=== PATIENT | male | born 1985 | race Caucasian/White ===

== ENCOUNTER → 2018-01-06 | Outpatient (CLI) | payer OTHER | END | disposition home or self-care (01) | LOC: LABWHC1 16:12 | PROVIDERS: ATTEND Family Medicine | DX: R07.9 Chest pain, unspecified (principal) | CPT/HCPCS: 36415; 84484; 85379 ==

== ENCOUNTER → 2020-04-26 | Outpatient (CLI) | payer OTHER ==
[2020-04-26 13:40] LABS: Basophils % (A) 0 %; Eosinophils # (A) 0.1 k/uL (0-0.7); Eosinophils % (A) 2 %; HCT 48.8 % (39.0-53.0); HGB 15.7 gm/dL (13.0-17.5); Lymphocytes # (A) 1.8 k/uL (1.0-4.8); Lymphocytes % (A) 25 %; MCHC 32.2 g/dL (31.0-37.0); MCV 83.9 fL (80.0-100.0); Mean Platelet Volume 7.7; Monocytes # (A) 0.4 k/uL (0-1.0); Monocytes % (A) 6 %; Neutrophils # (A) 4.7 k/uL (1.3-7.7); Neutrophils % (A) 65 %; Platelet Count 189 k/uL (150-450); RBC 5.81 m/uL (4.30-5.90); WBC 7.2 k/uL (3.8-10.6)
[2020-04-26 19:03] LABS: Cyclic Citrull Pep IgG Unit 0.8 U/mL; Cyclic Citrullinated Pep IgG NEGATIVE (NEGATIVE)
[2020-04-26 19:48] LABS: Erythrocyte Sedimentation Rate 7 mm/Hr (0-15)
[2020-04-26 20:26] LABS: Protein, Total 6.6 g/dL (6.2-8.2)
[2020-04-26 22:00] LABS: % Iron Saturation 21.17 (15.00-50.00); African American GFR (CKD) 76.5 (60.0-200.0); Albumin 4.6 g/dL (3.80-4.90); Albumin/Globulin Ratio 2.19 (1.60-3.17); BUN/Creat Ratio 8.57 Ratio (12.00-20.00); C Reactive Protein 0.7 mg/dL (0.0-0.8); Calcium 9.5 mg/dL (8.7-10.3); Globulin 2.1 g/dL (1.6-3.3); Potassium 4.3 mmol/L (3.5-5.5); Total Bilirubin 0.9 mg/dL (0.3-1.2); Total Protein 6.7 g/dL (6.2-8.2); Uric Acid 8.2 mg/dL (3.7-8.7)
[2020-04-26 22:26] LABS: Chol/HDL Ratio 6.31
== END | disposition home or self-care (01) ==
LOC: LABWHC1 12:15
PROVIDERS: ATTEND Family Medicine
DX: M13.0 Polyarthritis, unspecified (principal); L21.9 Seborrheic dermatitis, unspecified; C62.11 Malignant neoplasm of descended right testis; E29.1 Testicular hypofunction; F41.1 Generalized anxiety disorder; Z13.228 Encounter for screening for other metabolic disorders
CPT/HCPCS: 36415; 80053; 80061; 82306; 82607; 83540; 83550; 83615; 84165; 84402; 84403; 84443; 84550; 85025; 85652; 86038; 86039; 86140; 86200; 86334; 86618

== ENCOUNTER 2020-07-25 10:21 | Day surgery (SDC) | payer OTHER ==
[2020-07-23 13:17] VITALS: BMI 31.9
[~2020-07-25 10:21] MED LIST: LACTATED RINGERS 1,000 ML IV SCH; LIDOCAINE 1% (10MG/ML) FOR IV START INTRADERMA PRN
[2020-07-25 10:44] VITALS: RESP 16; TEMP 96
[2020-07-25] MEDS ORDERED: PROPOFOL 10 MG/ML 20 ML VIAL IV ONE (11:33)
[2020-07-25] MEDS ORDERED: LIDOCAINE 1% INJ 10MG/ML (20 ML MDV) ONE (11:33)
--- NOTE | 2020-07-25 11:50 | P.PCN ---
Date of Procedure: 07/25/20 Procedure(s) Performed: BRIEF HISTORY: Patient is a 34-year-old pleasant white male scheduled for an elective colonoscopy as a part of evaluation of intermittent rectal bleeding for the last few months duration. PROCEDURE PERFORMED: Colonoscopy. PREOPERATIVE DIAGNOSIS: Intermittent rectal bleeding. IV sedation per Anesthesia. PROCEDURE: After informed consent was obtained, the patient, was brought into the endoscopy unit. IV sedation was administered by Anesthesia under continuous monitoring. Digital rectal examination was normal. Initially the Olympus CF-160 flexible video colonoscope was then inserted in the rectum, gradually advanced into the cecum without any difficulty. Careful examination was performed as the scope was gradually being withdrawn. Ileocecal valve and the appendiceal orifice were visualized and appeared normal. Prep was excellent. Mucosa of the cecum, ascending colon, transverse colon, descending colon, sigmoid colon, and rectum appeared normal. Retroflexion was performed in the rectum and small internal hemorrhoidswere seen. The patient tolerated the procedure well. IMPRESSION: Normal-appearing colon from rectum to cecum with no evidence of colorectal neoplasia Small internal hemorrhoids. RECOMMENDATIONS: Findings of this examination were discussed with the patient as well as his family.. He was advised to be a high-fiber diet and take fiber supplements a regular basis.
[2020-07-25 12:28] VITALS: BP 135/88; PULSE 81
== END 2020-07-25 12:31 | disposition home or self-care (01) ==
LOC: ORWHC2ENDO 10:21
PROVIDERS: ATTEND Internal Medicine Gastroenterology
DX: K64.8 Other hemorrhoids (principal); E80.4 Gilbert syndrome; Z88.8 Allergy status to other drugs, medicaments and biological substances; Z85.47 Personal history of malignant neoplasm of testis; Z90.5 Acquired absence of kidney
CPT/HCPCS: 45378; J2001; J2704

== ENCOUNTER → 2022-06-03 | Outpatient (CLI) | payer OTHER ==
--- NOTE | 2022-06-03 16:07 | P.SLEEP ---
History of Present Illness DATE: 06/03/2022 CONSULTATION/NEW PATIENT EVALUATION HISTORY OF PRESENT ILLNESS/SLEEP-WAKE EVALUATION: 36year old lady had been e valuated in the sleep center for possible obstructive sleep apnea hypopnea syndrome. 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 FALLING ASLEEP: Sometimes patient has problems with falling asleep, no TV in bedroom. DURING SLEEP: Patient sleeps in different positions with snoring, restless leg symptoms and dry mouth. No history of hypnogogical hallucinations, sleep paralysis, or cataplexy. DURING THE DAY/WAKE STATE: Patient feels sleepy during the day. [place] sleepiness scale is 7. Patient takes 1-3 naps at any time. PAST MEDICAL HISTORY: Anxiety. PAST SURGICAL HISTORY: Left kidney have been removed for donation, right testicle CA treated surgically, hydroxylated removed. MEDICATIONS: Paroxetine. SOCIAL HISTORY: Negative for smoking or using alcohol . FAMILY HISTORY: Hypertension, heart problems, asthma, headaches, cancer, mental illness, diabetes, restless legs. REVIEW OF SYSTEMS: Snoring, jerking movements while falling asleep. No fevers. No double vision. No recent chest pain. No shortness of breath. No abdominal pain. No bleeding episodes. No blood in urine. No seizure episodes. PHYSICAL EXAMINATION: GENERAL: A pleasant patient without any distress. VITAL SIGNS: BP 124/82, HR 72, RR 16, weight 198 pounds, height 5 foot 8 inches, body mass index 38.1. HEENT: PERRLA, EOMI. Evaluation of oropharynx showed tongue protrudes midline, low position of soft palate Mallampati 3. NECK: Supple. No JVD. Thyroid is not palpable. 17.5 inches in circumference. LUNGS: Clear to percussion and to auscultation. Good air exchange. No wheezing or rhonchi. HEART: S1, S2 regular. No murmurs, gallops or rubs. ABDOMEN: Soft and nontender. Bowel sounds are present. No organomegaly appreciated. EXTREMITIES: No clubbing or cyanosis. PUBLIC INFORMATION DIRECTOR: Awake, alert, and oriented x3. Cranial nerves 2 to 7 intact. There is no fasciculation or atrophy noted. No focal deficits observed. ASSESSMENT: 1. Snoring, small oropharyngeal air space Mallampati 3, wide neck 17.5 inches in circumference, sleepiness. Possible obstructive sleep apnea hypopnea syndrome. 2. Obesity body mass index 38.1. 3 anxiety. 4. History of right testicle CA treated by orchiectomy. 5 status post the left kidney removed for donation. 6. Status post surgical treatment for hydrocele. 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 PLAN: 1. Polysomnography for evaluation of patient's breathing during sleep. 2. CPAP/BiPAP titration if sleep study confirms obstructive sleep apnea- hypopnea syndrome. 3. Preferable position during sleep on the side. 4. No driving if patient feels any sleepiness. Patient is aware of civil and criminal liability for unsafe driving. 5. Sleep hygiene with regular sleep time for at least 7.5-8 hours. 6. Watching and losing weight. Thank you very much for referring this patient for consultation. Sincerely, Luis Oates MD, PhD, FAASM. Diplomat of [employer], Sleep Medicine Board by [employer] [facility] Past Medical History Past Medical History: Cancer, Renal Disease, Skin Disorder Additional Past Medical History / Comment(s): Hx testicular cancer 2015; Rt testicle removed, had chemo. Hx rectal bleeding; Family hx colon cancer. Hx Gilbert Syndrome, Lt Nephrectomy. Dermatitis in scalp and [place] area. History of Any Multi-Drug Resistant Organisms: None Reported Past Surgical History: Orthopedic Surgery Additional Past Surgical History / Comment(s): nephrectomy - left kidney, Rt testicle removal. hydrocele surgery. ORIF Lt Elbow Past Anesthesia/Blood Transfusion Reactions: No Reported Reaction Smoking Status: Never smoker - Past Family History Mother Family Medical History: No Reported History Additional Family Medical History / Comment(s): (maternal grandmother had colon cancer) Medications and Allergies Home Medications Medication Instructions Recorded Confirmed Type PARoxetine HCL [Paroxetine HCl] 20 mg PO DAILY 02/23/15 07/25/20 History Cholecalciferol [Vitamin D3 (25 2,000 unit PO DAILY 07/23/20 07/25/20 History Mcg = 1000 Iu)] Cyanocobalamin [Vitamin B-12] 500 mcg PO DAILY 07/23/20 07/25/20 History Pedi Multivit No.25/Folic Acid 1 tab PO DAILY 07/23/20 07/25/20 History [Flintstones Multivit Chew Tab] Allergies Allergy/AdvReac Type Severity Reaction Status Date / Time promethazine HCl Allergy Confusion/V Verified 07/23/20 13:00 [From Phenergan] IOLENT Sleep Note - Sleep Note Sleep Note: Temperature: Pulse Rate: Respiratory Rate: Blood Pressure: SpO2: Height: Weight: BMI: Neck Circumference:
--- NOTE | 2022-06-03 16:34 | P.PN ---
Subjective DATE: 06/03/2022 FOLLOW UP VISIT. Patient with obstructive sleep apnea hypopnea syndrome return to sleep center for follow-up visit. Information from previous visit have been reviewed. Patient is using PAP equipment every night for the whole night, getting PAP supplies in time. The patient does not have significant problems with the mask, PAP unit and humidification. [place] sleepiness scale is 3, which is normal. I checked information from PAP unit. PAP unit pressure 12 cm H2O. Usage is 100 % for more then 4 hours, average 7.1 hours per night. Leak is increased to 42 l/m. Patient using nasal pillow mask with chinstrap. Apnea Hypopnea Index is 5.1, which is normal. MEDICATIONS:1. Synthroid 137 g once a day 2. Metoprolol 100 mg 3 times a day 3. Zetia 10 mg once a day 4. Xarelto 20 mg once a day 5. Lasix 40 mg once a day During physical exam: GENERAL: A pleasant patient without any distress. VITAL SIGNS: BP 98/61, HR 72, RR 16 , weight 250, height 5 foot 6 inches, body mass index 40.3, patient lost 17 pounds since previous visit, temperature 97.4, oxygen saturation at room air 96 % . HEENT: PERRLA, EOMI.low position of soft palate, Mallapati 4 . NECK: Supple. No JVD. LUNGS: Clear to percussion and to auscultation. Good air exchange. No wheezing or rhonchi. HEART: S1, S2 regular. ABDOMEN: Soft and nontender. Obese EXTREMITIES: No clubbing or cyanosis. CASH REGISTER MECHANIC: Awake, alert, and oriented x3. No focal deficit. Impressions: 1. Obstructive sleep apnea-hypopnea syndrome. Patient demonstrated great compliance with treatment, benefiting from treatment. 2. Obesity, patient lost 17 pounds since previous visit. 3. Status post COVID- and 2020. 4. Atrial fibrillation. 5. Hypothyroidism. 6. Miastenia gravis. 7. Hyperlipidemia. 8. History of biliary cirrhosis. Plan: 1. Continue using PAP equipment every night for the whole night. 2. To change air filter at least 1-2 times per month. 3. PAP unit should stay lower then position of the head. 4. Advised patient to remove all remaining water from humidifier canister daily and make it dry after each usage. Refill canister with fresh distilled water before each usage. 5. Sleep hygiene with regular time in bed for at least 8 hours. 6. Precautions related to driving. No driving if feel any sleepiness. 7. I will maintain prescription for PAP supplies including mask, tube, filters. 8. Follow up visit in 6 months or earlier if patient has any problems. 9. Watching and continue losing weight. Thank you very much for allowing me to participate in the management of your patient. Luis Oates MD, PhD, FAASM. Diplomat of [place] [employer], Sleep Medicine Board by [place] [employer] Central Office Install[facility] [place]
== END ==
LOC: SLEEP 15:28
PROVIDERS: ATTEND Internal Medicine
DX: G47.30 Sleep apnea, unspecified (principal); Z98.890 Other specified postprocedural states; Z90.79 Acquired absence of other genital organ(s); Z88.8 Allergy status to other drugs, medicaments and biological substances
CPT/HCPCS: 99211

== ENCOUNTER 2023-03-09 21:43 | Emergency (ER) | payer OTHER ==
[2023-03-09 21:53] VITALS: RESP 18
[2023-03-09] MEDS ORDERED: ONDANSETRON ODT 4 MG TAB PO STA (22:06)
--- NOTE | 2023-03-09 22:38 | XR ---
EXAM: XR Chest, 2 Views CLINICAL HISTORY: ITS.REASON XR Reason: cough TECHNIQUE: Frontal and lateral views of the chest. COMPARISON: No relevant prior studies available. FINDINGS: Lungs: Unremarkable. No consolidation. Pleural space: Unremarkable. No pneumothorax. Heart: Unremarkable. No cardiomegaly. Mediastinum: Unremarkable. Bones/joints: Unremarkable. IMPRESSION: Normal chest x-rays.
[2023-03-09] MEDS ORDERED: methylPREDNISolone 4 MG TAB PO STA (23:07)
[2023-03-09] MEDS ORDERED: methylPREDNISolone 4 MG TAB PO ONE (23:15)
--- NOTE | 2023-03-09 23:15 | ED ---
General Adult HPI - General Chief complaint: Upper Respiratory Infection Stated complaint: Body Aches, Cough, N/V Time Seen by Provider: 03/09/23 21:54 Source: patient Mode of arrival: ambulatory Limitations: no limitations - History of Present Illness Initial comments: Patient is a 37-year-old male who presents to the emergency department for upper respiratory symptoms. Patient reports productive cough, body aches, chills, nausea since yesterday. He did have one episode of vomiting yesterday while coughing. He denies fever. Denies shortness of breath, chest pain. Denies history of asthma and COPD. - Related Data Home Medications Medication Instructions Recorded Confirmed PARoxetine HCL [Paroxetine HCl] 20 mg PO DAILY 02/23/15 07/25/20 Cholecalciferol [Vitamin D3 (25 2,000 unit PO DAILY 07/23/20 07/25/20 Mcg = 1000 Iu)] Cyanocobalamin [Vitamin B-12] 500 mcg PO DAILY 07/23/20 07/25/20 Pedi Multivit No.25/Folic Acid 1 tab PO DAILY 07/23/20 07/25/20 [Flintstones Multivit Chew Tab] Previous Rx's Medication Instructions Recorded Ondansetron Odt [Zofran Odt] 4 mg PO Q8HR PRN #10 tab 03/09/23 methylPREDNISolone Dose Pack 4 mg PO DIRECTED #1 packet 03/09/23 [Medrol Dose Pack] Allergies Allergy/AdvReac Type Severity Reaction Status Date / Time promethazine HCl Allergy Confusion/V Verified 03/09/23 21:50 [From Phenergan] IOLENT Review of Systems ROS Statement: Those systems with pertinent positive or pertinent negative responses have been documented in the HPI. ROS Other: All systems not noted in ROS Statement are negative. Past Medical History Past Medical History: Cancer, Renal Disease, Skin Disorder Additional Past Medical History / Comment(s): Hx testicular cancer 2015; Rt testicle removed, had chemo. Hx rectal bleeding; Family hx colon cancer. Hx Gilbert Syndrome, Lt Nephrectomy. Dermatitis in scalp and [place] area. History of Any Multi-Drug Resistant Organisms: None Reported Past Surgical History: Orthopedic Surgery Additional Past Surgical History / Comment(s): nephrectomy - left kidney, Rt testicle removal. hydrocele surgery. ORIF Lt Elbow Past Anesthesia/Blood Transfusion Reactions: No Reported Reaction Past Psychological History: Anxiety Smoking Status: Never smoker Past Alcohol Use History: None Reported Past Drug Use History: None Reported - Past Family History Mother Family Medical History: No Reported History Additional Family Medical History / Comment(s): (maternal grandmother had colon cancer) General Exam Limitations: no limitations General appearance: alert Eye exam: Present: normal appearance, PERRL, EOMI. Absent: scleral icterus, conjunctival injection, periorbital swelling Respiratory exam: Present: wheezes (Upper lung [place]). Absent: normal lung sounds bilaterally, respiratory distress, rales, rhonchi, stridor Cardiovascular Exam: Present: regular rate, normal rhythm, normal heart sounds. Absent: systolic murmur, diastolic murmur, rubs, gallop, clicks GI/Abdominal exam: Present: soft, normal bowel sounds. Absent: distended, tenderness, guarding, rebound, rigid Neurological exam: Present: alert Psychiatric exam: Present: normal affect, normal mood Skin exam: Present: warm, dry, intact, normal color. Absent: rash Course Vital Signs 03/09/23 03/09/23 21:50 23:23 Temperature 99 F 98.1 F Pulse Rate 102 H 92 Respiratory 18 18 Rate Blood Pressure 124/86 124/74 O2 Sat by Pulse 98 98 Oximetry Medical Decision Making - Medical Decision Making Was pt. sent in by a medical professional or institution ([facility], SHOE RECONDITIONER, urgent care, hospital, or penitentiary...) When possible be specific @ -No Did you speak to anyone other than the patient for history (EMS, parent, family, police, friend...)? What history was obtained from this source @ -No Did you review nursing and triage notes (agree or disagree)? Why? @ -I reviewed and agree with nursing and triage notes Were old charts reviewed (outside hosp., previous admission, EMS record, old EKG, old radiological studies, urgent care reports/EKG's, penitentiary records)? Report findings @ -No old charts were reviewed Differential Diagnosis (chest pain, altered mental status, abdominal pain women, abdominal pain men, vaginal bleeding, weakness, fever, dyspnea, syncope, headache, dizziness, GI bleed, back pain, seizure, CVA, palpatations, mental health)? @ -URI, sinusitus,strep pharyngitis, viral pharyngitis, pneumonia, bronchitis- this list is not meant to be all-inclusive EKG interpreted by me (3pts min.). @ -As above X-rays interpreted by me (1pt min.). @ No acute cardiopulmonary process CT interpreted by me (1pt min.). @ -None done U/S interpreted by me (1pt. min.). @ -None done What testing was considered but not performed or refused? (CT, X-rays, U/S, labs)? Why? @ -None What meds were considered but not given or refused? Why? @ -None Did you discuss the management of the patient with other professionals (professionals i.e. DrAdriana, PA, SHOE RECONDITIONER, lab, RT, psych nurse, family welfare social work professor, balance truing inspector, teacher, security police officer, case filler)? Give summary @ -No Was smoking cessation discussed for >3mins.? @ -No Was critical care preformed (if so, how long)? @ -No Were there social determinants of health that impacted care today? How? (Homelessness, low income, unemployed, alcoholism, drug addiction, transportation, low edu. Level, literacy, decrease access to med. care, skilled nursing, rehab)? @ -No Was there de-escalation of care discussed even if they declined (Discuss DNR or withdrawal of care, Hospice)? DNR status @ -No What co-morbidities impacted this encounter? (DM, HTN, Smoking, COPD, CAD, Cancer, CVA, ARF, Chemo, Hep., AIDS, mental health diagnosis, sleep apnea, morbid obesity)? @ -None Was patient admitted / discharged? Hospital course, mention meds given and route, prescriptions, significant lab abnormalities, going to OR and other pertinent info. @ -[Patient presenting for upper respiratory symptoms. Chest x-ray shows no acute cardiopulmonary process. Viral testing is negative. Patient does have mild wheezing he'll be discharged with Medrol Dosepak for acute bronchitis of suspected viral etiology. Undiagnosed new problem with uncertain prognosis? @ -No Drug Therapy requiring intensive monitoring for toxicity (Heparin, Nitro, Insulin, Cardizem)? @ -No Were any procedures done? @ -No Diagnosis/symptom? @ -Acute bronchitis Acute, or Chronic, or Acute on Chronic? @ Acute Uncomplicated (without systemic symptoms) or Complicated (systemic symptoms)? @ -Uncomplicated Side effects of treatment? @ -No Exacerbation, Progression, or Severe Exacerbation? @ -No Poses a threat to life or bodily function? How? (Chest pain, [place], [place], pneumonia, PE, COPD, DKA, ARF, appy, cholecystitis, CVA, Diverticulitis, Homicidal, Suicidal, threat to staff... and all critical care pts) @ -No Dr. Mccarthy is my attending - Lab Data Lab Results 03/09/23 Range/Units 22:14 Influenza Type A (PCR) Not Detected (Not Detectd) Influenza Type B (PCR) Not Detected (Not Detectd) RSV (PCR) Not Detected (Not Detectd) SARS-CoV-2 (PCR) Not Detected (Not Detectd) Disposition Clinical Impression: Acute bronchitis Disposition: HOME SELF-CARE Condition: Good Instructions (If sedation given, give patient instructions): Acute Bronchitis (ED) Additional Instructions: Take medication as directed. Please follow-up with your primary care provider in 1-2 days. Return to the emergency department if you experience new, concerning, or worsening symptoms. Prescriptions: methylPREDNISolone Dose Pack [Medrol Dose Pack] 4 mg PO DIRECTED #1 packet Ondansetron Odt [Zofran Odt] 4 mg PO Q8HR PRN #10 tab PRN Reason: Nausea Is patient prescribed a controlled substance at d/c from ED?: No Referrals: Luisa Zhu MD [Primary Care Provider] - 1-2 days
[2023-03-09 23:24] VITALS: BP 124/74; PULSE 92; TEMP 98.1
== END 2023-03-09 23:24 | disposition home or self-care (01) ==
LOC: EC 21:43
DX: J20.9 Acute bronchitis, unspecified (principal); F41.9 Anxiety disorder, unspecified; Z20.822 Contact with and (suspected) exposure to COVID-19; Z79.899 Other long term (current) drug therapy; Z88.8 Allergy status to other drugs, medicaments and biological substances
CPT/HCPCS: 87636; 71046; 99283; J7509

== ENCOUNTER 2023-10-09 13:01 | Emergency (ER) | payer OTHER ==
--- NOTE | 2023-10-09 13:18 | ED ---
Abdominal Pain HPI - General Source: patient, RN notes reviewed Mode of arrival: ambulatory Limitations: no limitations <Yudi Walton - Last Filed: 10/09/23 13:56> - General Source: patient, RN notes reviewed Mode of arrival: ambulatory Limitations: no limitations <Leonela Stark - Last Filed: 10/09/23 18:19> - General Chief Complaint: Abdominal Pain Stated Complaint: Pain in side, difficulty urinating Time Seen by Provider: 10/09/23 13:45 - History of Present Illness Initial Comments: Quick Note: This is a 38-year-old male who presents to the emergency department for right flank pain. Patient states that this started around noon after he went to urinate. He has since had difficulty urinating. Denies any history of kidney stones. Patient had a left nephrectomy, and is concerned because he only has his right kidney left. (Yudi Walton) Patient is a 38-year-old male presented to ER with a chief complaint of right flank pain. He states around noon this afternoon he started experiencing extreme right flank pain. He reports he was also having difficulty urinating. 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 Patient denies any fevers, chills, night sweats. He states he was seen at urgent care prior to arrival in the ER and did have an episode of vomiting due to the pain. Denies history of kidney stones. He reports since being in the ER for evaluation his pain has greatly improved. He does report so me mild suprapubic pressure. States he had 1 episode of hematuria in the ER but that has since improved as well. (Leonela Stark) - Related Data Home Medications Medication Instructions Recorded Confirmed PARoxetine HCL [Paroxetine HCl] 20 mg PO DAILY 02/23/15 07/25/20 Cholecalciferol [Vitamin D3 (25 2,000 unit PO DAILY 07/23/20 07/25/20 Mcg = 1000 Iu)] Cyanocobalamin [Vitamin B-12] 500 mcg PO DAILY 07/23/20 07/25/20 Pedi Multivit No.25/Folic Acid 1 tab PO DAILY 07/23/20 07/25/20 [Flintstones Multivit Chew Tab] Previous Rx's Medication Instructions Recorded Ondansetron Odt [Zofran Odt] 4 mg PO Q8HR PRN #10 tab 03/09/23 methylPREDNISolone Dose Pack 4 mg PO DIRECTED #1 packet 03/09/23 [Medrol Dose Pack] Nitrofurantoin Monohyd/M-Cryst 100 mg PO Q12HR #14 cap 10/09/23 [Macrobid] Allergies Allergy/AdvReac Type Severity Reaction Status Date / Time promethazine HCl Allergy Confusion/V Verified 03/09/23 21:50 [From Phenergan] IOLENT Review of Systems ROS Other: All systems not noted in ROS Statement are negative. <Yudi Walton - Last Filed: 10/09/23 13:56> ROS Other: All systems not noted in ROS Statement are negative. <Leonela Stark - Last Filed: 10/09/23 18:19> ROS Statement: Those systems with pertinent positive or pertinent negative responses have been documented in the HPI. Past Medical History Past Medical History: Cancer, Renal Disease, Skin Disorder Additional Past Medical History / Comment(s): Hx testicular cancer 2015; Rt testicle removed, had chemo. Hx rectal bleeding; Family hx colon cancer. Hx Gilbert Syndrome, Lt Nephrectomy. Dermatitis in scalp and [place] area. History of Any Multi-Drug Resistant Organisms: None Reported Past Surgical History: Orthopedic Surgery Additional Past Surgical History / Comment(s): nephrectomy - left kidney, Rt testicle removal. hydrocele surgery. ORIF Lt Elbow Past Anesthesia/Blood Transfusion Reactions: No Reported Reaction Past Psychological History: Anxiety Smoking Status: Never smoker Past Alcohol Use History: None Reported Past Drug Use History: None Reported - Past Family History Mother Family Medical History: No Reported History Additional Family Medical History / Comment(s): (maternal grandmother had colon cancer) <Yudi Walton - Last Filed: 10/09/23 13:56> General Exam Limitations: no limitations <Yudi Walton - Last Filed: 10/09/23 13:56> General appearance: alert, in no apparent distress Head exam: Present: atraumatic, normocephalic, normal inspection Eye exam: Present: normal appearance, PERRL, EOMI. Absent: scleral icterus, conjunctival injection, periorbital swelling Respiratory exam: Present: normal lung sounds bilaterally. Absent: respiratory distress, wheezes, rales, rhonchi, stridor Cardiovascular Exam: Present: regular rate, normal rhythm, normal heart sounds. Absent: systolic murmur, diastolic murmur, rubs, gallop, clicks GI/Abdominal exam: Present: soft, normal bowel sounds. Absent: distended, tenderness, guarding, rebound, rigid Back exam: Present: normal inspection Neurological exam: Present: alert, oriented X3, CN II-XII intact Psychiatric exam: Present: normal affect, normal mood Skin exam: Present: warm, dry, intact, normal color. Absent: rash <Leonela Stark - Last Filed: 10/09/23 18:19> - General Exam Comments Initial Comments: Visual Physical Exam Vital signs reviewed General: Well-appearing, nontoxic, no acute distress. Head: Normocephalic, atraumatic Eyes: PERRLA, EOMI ENT: Airway patent Chest: Nonlabored breathing Skin: No visual rash, normal skin tone Neuro: Alert and oriented 3 Musculoskeletal: No gross abnormalities (Yudi Walton) Course Vital Signs 10/09/23 13:13 Temperature 98.2 F Pulse Rate 79 Respiratory 16 Rate Blood Pressure 126/84 O2 Sat by Pulse 98 Oximetry Medical Decision Making - Lab Data Result diagrams: 10/09/23 13:34 <Yudi Walton - Last Filed: 10/09/23 13:56> - Lab Data Result diagrams: 10/09/23 13:34 10/09/23 13:34 - Radiology Data Radiology results: report reviewed, image reviewed <Leonela Stark - Last Filed: 10/09/23 18:19> - Medical Decision Making I performed the QuickNote portion of this chart. Signed Yudi Walton PA-C. (Yudi Walton) Was pt. sent in by a medical professional or institution (GERMAN Burdick, MANAGER OF DEVELOPMENT, urgent care, hospital, or assisted...) When possible be specific @ -Patient sent by urgent care for evaluation of hematuria and right flank pain. Did you speak to anyone other than the patient for history (EMS, parent, family, police, friend...)? What history was obtained from this source @ -No Did you review nursing and triage notes (agree or disagree)? Why? @ -I reviewed and agree with nursing and triage notes Were old charts reviewed (outside hosp., previous admission, EMS record, old EKG, old radiological studies, urgent care reports/EKG's, assisted records)? Report findings @ -No old charts were reviewed Differential Diagnosis (chest pain, altered mental status, abdominal pain women, abdominal pain men, vaginal bleeding, weakness, fever, dyspnea, syncope, headache, dizziness, GI bleed, back pain, seizure, CVA, palpatations, mental health, musculoskeletal)? @ -Differential Back Pain: Strain, zoster, cauda equina syndrome, epidural abscess, vertebral osteomyelitis, discitis, fracture, subluxation, disc herniation, DJD, spinal stenosis, dissection, AAA, pancreatitis, peptic ulcer disease, pyelonephritis, kidney stone, this is not meant to be an all-inclusive list. EKG interpreted by me (3pts min.). @ -None X-rays interpreted by me (1pt min.). @ -None done CT interpreted by me (1pt min.). @ -CT abdomen pelvis shows no evidence of obstructive uropathy or renal calculi. Appendix normal. No other evidence of acute abdominal process. Left kidney surgically absent. U/S interpreted by me (1pt. min.). @ -None done What testing was considered but not performed or refused? (CT, X-rays, U/S, labs)? Why? @ -None What meds were considered but not given or refused? Why? @ -None Did you discuss the management of the patient with other professionals (professionals i.e. , PA, MANAGER OF DEVELOPMENT, lab, RT, psych nurse, high school social studies teacher, rouge presser, teacher, deportation officer, case finisher)? Give summary @ -No Was smoking cessation discussed for >3mins.? @ -No Was critical care preformed (if so, how long)? @ -No Were there social determinants of health that impacted care today? How? (Homelessness, low income, unemployed, alcoholism, drug addiction, transportation, low edu. Level, literacy, decrease access to med. care, fdc, rehab)? @ -No Was there de-escalation of care discussed even if they declined (Discuss DNR or withdrawal of care, Hospice)? DNR status @ -No What co-morbidities impacted this encounter? (DM, HTN, Smoking, COPD, CAD, Cancer, CVA, ARF, Chemo, Hep., AIDS, mental health diagnosis, sleep apnea, morbid obesity)? @ -Patient has 1 kidney Was patient admitted / discharged? Hospital course, mention meds given and route, prescriptions, significant lab abnormalities, going to OR and other pertinent info. @ -Discharge. Patient is a 38-year-old male presenting to the ER with chief complaint of right flank pain. History and physical exam completed. Vitals stable. Patient no signs of acute distress and nontoxic appearing. No CVA tenderness. No abdominal tenderness. Labs obtained significant for creatinine 1.48, BUN 14 otherwise unremarkable. Urine is hemorrhagic with over [address] abdomen pelvis shows no evidence of obstructive uropathy or renal calculus. Left kidney surgically absent. No evidence for other acute abdominal process. Results discussed with griselda, all questions answered. Urine sent for cultrue. Due to concern of infection and patient only having one kidney, patient will be started on Macrobid. Return parameters were discussed. P atient will be discharged in stable condition with follow-up o PCP. Patient expressed understanding and agreement with care plan. Undiagnosed new problem with uncertain prognosis? @ -No Drug Therapy requiring intensive monitoring for toxicity (Heparin, Nitro, Insulin, Cardizem)? @ -No Were any procedures done? @ -No Diagnosis/symptom? @ -Right flank pain/hematuria Acute, or Chronic, or Acute on Chronic? @ -Acute Uncomplicated (without systemic symptoms) or Complicated (systemic symptoms)? @ -Uncomplicated Side effects of treatment? @ -No Exacerbation, Progression, or Severe Exacerbation? @ -No Poses a threat to life or bodily function? How? (Chest pain, [place], [place], pneumonia, PE, COPD, DKA, ARF, appy, cholecystitis, CVA, Diverticulitis, Homicidal, Suicidal, threat to staff... and all critical care pts) @ -No (Leonela Stark) - Lab Data Lab Results 10/09/23 10/09/23 10/09/23 Range/Units 13:17 13:34 13:34 WBC 7.6 (3.8-10.6) k/uL RBC 5.12 (4.30-5.90) m/uL Hgb 15.7 (13.0-17.5) gm/dL Hct 42.5 (39.0-53.0) % MCV 82.9 (80.0-100.0) fL MCH 30.7 (25.0-35.0) pg MCHC 37.1 H (31.0-37.0) g/dL RDW 13.0 (11.5-15.5) % Plt Count 178 (150-450) k/uL MPV 8.2 Neutrophils % 74 % Lymphocytes % 19 % Monocytes % 4 % Eosinophils % 2 % Basophils % 0 % Neutrophils # 5.6 (1.3-7.7) k/uL Lymphocytes # 1.5 (1.0-4.8) k/uL Monocytes # 0.3 (0-1.0) k/uL Eosinophils # 0.2 (0-0.7) k/uL Basophils # 0.0 (0-0.2) k/uL Sodium 141 (137-145) mmol/L Potassium 3.8 (3.5-5.1) mmol/L Chloride 106 (98-107) mmol/L Carbon Dioxide 26 (22-30) mmol/L Anion Gap 9 mmol/L BUN 14 (9-20) mg/dL Creatinine 1.48 H (0.66-1.25) mg/dL Est GFR (CKD-EPI)AfAm 70 (>60 ml/min/1.73 sqM) Est GFR (CKD-EPI)NonAf 60 (>60 ml/min/1.73 sqM) Glucose 108 H (74-99) mg/dL Calcium 9.4 (8.4-10.2) mg/dL Total Bilirubin 2.0 H (0.2-1.3) mg/dL AST 40 (17-59) U/L ALT 48 (4-49) U/L Alkaline Phosphatase 96 (38-126) U/L Total Protein 7.3 (6.3-8.2) g/dL Albumin 4.8 (3.5-5.0) g/dL Urine Color Light Red Urine Appearance Cloudy (Clear) Urine pH 6.0 (5.0-8.0) Ur Specific [place] 1.016 (1.001-1.035) Urine Protein 1+ H (Negative) Urine Glucose (UA) Negative (Negative) Urine Ketones Negative (Negative) Urine Blood Large H (Negative) Urine Nitrite Negative (Negative) Urine Bilirubin Negative (Negative) Urine Urobilinogen <2.0 (<2.0) mg/dL Ur Leukocyte Esterase Negative (Negative) Urine RBC >182 H (0-5) /hpf Urine WBC 3 (0-5) /hpf Ur Squamous Epith Cells 1 (0-4) /hpf Urine Bacteria Rare H (None) /hpf Hyaline Casts 18 H (0-2) /lpf Urine Mucus Few H (None) /hpf Disposition <Yudi Walton - Last Filed: 10/09/23 13:56> Is patient prescribed a controlled substance at d/c from ED?: No Time of Disposition: 18:11 <Leonela Stark - Last Filed: 10/09/23 18:19> Clinical Impression: Hematuria, Right flank pain Disposition: HOME SELF-CARE Condition: Stable Instructions (If sedation given, give patient instructions): Kidney Stones (ED), Urinary Tract Infection in Men (ED) Additional Instructions: Please complete full course of antibiotics. Follow-up with PCP in next 1-2 days. Return to ER for any new or worsening symptoms. Prescriptions: Nitrofurantoin Monohyd/M-Cryst [Macrobid] 100 mg PO Q12HR #14 cap Referrals: Luisa Zhu MD [Primary Care Provider] - 1-2 days
[2023-10-09 13:46] LABS: Basophils % (A) 0 %; Eosinophils # (A) 0.2 k/uL (0-0.7); Eosinophils % (A) 2 %; HCT 42.5 % (39.0-53.0); HGB 15.7 gm/dL (13.0-17.5); Lymphocytes # (A) 1.5 k/uL (1.0-4.8); Lymphocytes % (A) 19 %; MCH 30.7 pg (25.0-35.0); MCHC 37.1 g/dL (31.0-37.0); MCV 82.9 fL (80.0-100.0); Mean Platelet Volume 8.2; Monocytes # (A) 0.3 k/uL (0-1.0); Monocytes % (A) 4 %; Neutrophils # (A) 5.6 k/uL (1.3-7.7); Neutrophils % (A) 74 %; Platelet Count 178 k/uL (150-450); RBC 5.12 m/uL (4.30-5.90); WBC 7.6 k/uL (3.8-10.6)
[2023-10-09 14:00] LABS: ALT 48 U/L (4-49); AST 40 U/L (17-59); African American GFR (CKD) 70 (>60 ml/min/1.73 sqM); Albumin 4.8 g/dL (3.5-5.0); Alkaline Phosphatase 96 U/L (38-126); Anion Gap 9 mmol/L; Blood Urea Nitrogen 14 mg/dL (9-20); Calcium 9.4 mg/dL (8.4-10.2); Carbon Dioxide 26 mmol/L (22-30); Chloride 106 mmol/L (98-107); Glucose 108 mg/dL (74-99); Non-African American GFR(CKD) 60 (>60 ml/min/1.73 sqM); Potassium 3.8 mmol/L (3.5-5.1); Sodium 141 mmol/L (137-145); Total Protein 7.3 g/dL (6.3-8.2)
--- NOTE | 2023-10-09 14:56 | CT ---
EXAMINATION TYPE: CT abdomen pelvis wo con CT DLP: 589.3 mGycm, Automated exposure control for dose reduction was used. DATE OF EXAM: 10/09/2023 2:50 PM COMPARISON: 10/01/2015 CLINICAL INDICATION:Male, 38 years old with history of Right flank pain; flank pain TECHNIQUE: Axial CT abdomen pelvis wo con;Sagittal and coronal reformats were created on a separate workstation. Contrast used: mL of , (none if empty) Oral contrast used: without Oral Contrast (none if empty) FINDINGS: LOWER CHEST: Unremarkable ABDOMEN LIVER: Unremarkable GALLBLADDER AND BILE DUCTS: Unremarkable. PANCREAS: Unremarkable. SPLEEN: Unremarkable. ADRENAL GLANDS: Unremarkable. KIDNEYS AND URETERS: The left kidney is surgically absent the left adrenal gland may also be surgical ly absent. No evidence of hydronephrosis or renal calculus. The ureters are unremarkable. PELVIS BLADDER: Unremarkable REPRODUCTIVE: Unremarkable. ABDOMEN & PELVIS STOMACH AND BOWEL: No evidence of bowel obstruction. The appendix is within normal limits. PERITONEUM/RETROPERITONEUM: No evidence of pneumoperitoneum or free fluid. VASCULATURE: No evidence of aortic aneurysm. MUSCULOSKELETAL: No acute osseous abnormalities LYMPH NODES: No gross evidence for lymphadenopathy. SOFT TISSUE/ABDOMINAL WALL: Fat-containing inguinal hernias. Fat-containing umbilical hernia. IMPRESSION: 1. No evidence of obstructive uropathy or renal calculus. The appendix is normal. No evidence for ac betina abdominal process. 2. The left kidney is surgically absent.
[2023-10-09 15:08] LABS: Appearance,Urine Cloudy (Clear); Bacteria,Urine Rare /hpf; Bilirubin,Urine Negative (Negative); Blood,Urine Large (Negative); Color,Urine Light Red; Glucose,Urine (UA) Negative (Negative); Hyaline Casts,Urine 18 /lpf (0-2); Ketones,Urine Negative (Negative); Leukocyte Esterase,Urine Negative (Negative); Mucus,Urine Few /hpf; Nitrite,Urine Negative (Negative); Protein,Urine 1+ (Negative); RBC,Urine >182 /hpf (0-5); Specific Gravity,Urine 1.016 (1.001-1.035); Squamous Epithelial Cell,Urine 1 /hpf (0-4); Urobilinogen,Urine <2.0 mg/dL (<2.0); WBC,Urine 3 /hpf (0-5)
[2023-10-09 19:24] VITALS: BP 136/78; PULSE 82; RESP 18; TEMP 98.4
== END 2023-10-09 19:17 | disposition home or self-care (01) ==
LOC: EC 13:01
DX: R31.9 Hematuria, unspecified (principal); R10.9 Unspecified abdominal pain; F41.9 Anxiety disorder, unspecified; Z79.899 Other long term (current) drug therapy; Z88.8 Allergy status to other drugs, medicaments and biological substances
CPT/HCPCS: 36415; 74176; 80053; 81001; 83605; 85025; 99284

== ENCOUNTER → 2023-10-26 | Outpatient (CLI) | payer OTHER ==
--- NOTE | 2023-10-26 13:04 | US ---
EXAMINATION TYPE: US kidneys/renal and bladder DATE OF EXAM: 10/26/2023 COMPARISON: CT 10/09/2023 CLINICAL INDICATION: Male, 38 years old with history of R31.0 GROSS HEMATURIA; Patient states recent flank pain and difficulty going to the bathroom/ slightly painful urination. States that there was bl ood in his urine once, but not anymore. Patient no longer has left kidney, donated 10+ years ago. EXAM MEASUREMENTS: Right Kidney: 12.0 x 5.8 x 4.9 cm Left Kidney: Surgically absent Right Kidney: No hydronephrosis or masses seen as best visualized Left Kidney: Surgically absent Bladder: wnl Bilateral Jets seen: Yes Incidental finding of prominent prostate. Measures 4.3 x 4.1 x 2.5 IMPRESSION: No evidence for right obstructive uropathy.
== END | disposition home or self-care (01) ==
LOC: RADUSWWP 11:28
PROVIDERS: ATTEND Family Medicine
DX: R31.0 Gross hematuria (principal)
CPT/HCPCS: 76770